=== PATIENT | male | born 1970 | race Caucasian/White ===

== ENCOUNTER 2018-09-22 11:21 | Emergency (ER) | payer OTHER ==
[~2018-09-22] VITALS: Ht 172.7 cm; Wt 95.3 kg
[2018-09-22] MEDS ORDERED: PROTONIX40 M1 PO (11:31)
[2018-09-22] MEDS ORDERED: NAPROSYN500 MG PO (11:31)
[2018-09-22 11:47] LABS: ABSOLUTE NEUTROPHILS 3.7 thou/uL (1.4-8.2); BASOPHILS 0.7 % (0.0-2.0); EOSINOPHILS 3.8 % (0.0-3.0); HEMATOCRIT 46.9 % (42.0-52.0); HEMOGLOBIN 15.7 gm/dL (14.0-18.0); LYMPHOCYTES 33.7 % (24.0-44.0); MCH 30.6 pg (26.0-34.0); MCHC 33.4 g/dL (28.0-37.0); MCV 91.7 fL (80.0-100.0); MONOCYTES 9.4 % (1.0-8.0); PLATELET COUNT 262 thou/uL (150-400); POLYS 52.4 % (36.0-66.0); RBC 5.12 mil/uL (4.50-6.00); RDW 12.6 % (10.5-14.5); WBC 7.1 thou/uL (4.0-11.0)
[2018-09-22 11:52] LABS: ANION GAP 10 mmol/L (7-16); BUN 16 mg/dL (7-18); CALCIUM 10.2 mg/dL (8.5-10.1); CHLORIDE 102 mmol/L (98-107); CO2 27 mmol/L (21-32); GLUCOSE 113 mg/dL (74-106); SODIUM 139 mmol/L (136-145)
[2018-09-22 11:53] LABS: POTASSIUM 5.8 mmol/L (3.5-5.1)
[2018-09-22 12:03] LABS: ALBUMIN 4.5 g/dL (3.4-5.0); LIPASE 108 U/L (73-393); SGOT 37 U/L (15-37); SGPT 54 U/L (30-65); TOTAL BILIRUBIN 0.4 mg/dL (<0.1-1.0); TOTAL PROTEIN 8.2 g/dL (6.4-8.2); TROPONIN-I <0.06 ng/mL (<0.06)
[2018-09-22] MEDS ORDERED: ZANTAC 150MG T150 MG PO (12:30)
[2018-09-22 12:40] VITALS: BP 141/100
--- NOTE | 2018-09-23 19:52 | EKG ---
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: : 1970 Requested By: Venita Cortez Order Number: [id number] MD: Alden Montalvo Measurements Intervals [place] Rate: 76 P: 64 MO: 153 QRS: -46 QRSD: 92 T: 29 QT: 370 QTc: 417 Interpretive Statements Sinus rhythm LAD, consider left anterior fascicular block Abnormal R-wave progression, late transition No previous ECG available for comparison Electronically Signed On 09-23-2018 19:52:20 CDT by Alden Montalvo [email or web address] ��������������������������������������������� <ELECTRONICALLY SIGNED> ���������������������������������������� By: Alden Montalvo MD ��������������������������������������������� 09/23/181951 20 20 Alden Montalvo MD /CYNDY
== END 2018-09-22 12:41 | disposition home or self-care (01) ==
LOC: ER 11:21
PROVIDERS: Physician Assistant
DX: K22.70 Barrett's esophagus without dysplasia (principal); K20.8 Other esophagitis; Z87.891 Personal history of nicotine dependence; Z87.19 Personal history of other diseases of the digestive system